=== PATIENT | female | born 1975 | race Caucasian/White ===

== ENCOUNTER 2024-12-17 11:10 | Outpatient (AMB) | payer OTHER, SELFPAY ==
--- NOTE | 2024-12-17 11:13 | MHC.PC.OV ---
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 Required: No Is last menstrual period known: Yes Last menstrual period: 12/10/24 Post menopausal: No Patient : No Allergies No Known Allergies Allergy (Verified 12/17/24 11:27) Medication List - Last Reconciled 12/17/24 by Vivien Ken CNP No Known Home Meds Tobacco use date assessed: 12/17/24 Dental Screening Dental Screen Date: 12/17/24 Did you have a dental visit in the last 12 months?: Yes Did you have a dental problem in the last 6 months where you did not have access to dental care?: No Was dental information given to patient?: Patient has dentist HPI HPI Comments History of Present Illness Details 49-year-old female presents to establish care. Prior PCP? - [facility] Last office visit/CPE/labs - 3-4 years Acute issue(s) - Reports pain to her lower lower back with prolonged sitting and standing. She describes the pain as sore, 7/10 on the pain pain scale; ongoing for the past 5 years, progressively worsened in the past one year. She does not take any medication for pain. 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 She also notes intermittent to her coccyx for over 10 years. She describes the pain as sharp 10/10 pain. The pain can occurs weekly or monthly, lasting 1-8 minutes; sitting/rocking on solid surface completely resolves the pain. Denies history of fall, injury, or trauma. She does not take medication for the pain. She has had negative colonoscopy and followed by chiropractor. No acute symptoms at this time. Past Medical History - Eczema, myopia and hyperopia (wears glasses), painless enlarged lymph node to right groin, chronic low back and coccyx pain Surgical History - None Family History - Mom: Hyperlipidemia - MGF: colon cancer Social History - History of smoking, 1pp x 22 years, quit 5 years ago, never had a lung scan. Vapes nicotine daily for the past 3 years. Drinks 2-4 magarita once weekly. Denies recreational drug use - Has been making healthy dietary choices. Walks regularly. Generally sleep well Health maintenance - Last eye exam was a year ago with [facility]. Encouraged to sign a release for her PCP to obtain Ophthalmology record - Last dental visit was in 09/2024 - Last Tdap unknown - Has not been vaccinated for the flu this season; declines vaccination - Last pap smear test was [address] James with [facility] mobile ui designer: Normal. Record not currently available - Last mammogram was 2 years ago: Never. She has an appointment with her bakery decorator in January and will have a mammogram then - Last colonoscopy was about 2 years with [facility]. Normal. 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 1. Little interest or pleasure in doing things: not at all 2. Feeling down, depressed, or hopeless: not at all 3. Trouble falling or staying asleep, or sleeping too much: not at all 4. Feeling tired or having little energy: not at all 5. Poor appetite or overeating: not at all 6. Feeling bad about yourself - or that you are a failure or have let yourself or your family down: not at all 7. Trouble concentrating on things, such as reading the newspaper or watching television: not at all 8. Moving or speaking so slowly that other people could have noticed. Or the opposite - being so fidgety or restless that you have been moving around a lot more than usual: not at all 9. Thoughts that you would be better off or of hurting yourself in some way: not at all Total score: 0 Depression Screening Interpretation: Negative Depression Screening Done: Yes 04114 - PHQ-9 Billing: Yes Source: Developed by Drs. Isaías Conte, Michelle Barrera, Andrew Schmidt and colleagues, with an educational deborah from [employer]. Thrive Questionnaire Date Thrive assessed: 12/17/24 I am a: Patient What is your living situation today?: I have a steady place to live Within the past 12 months, did the food you bought not last and you didn't have the money to get more?: Never true Within the past 12 months, did you worry whether your food would run out before you got money to buy more?: Never true Do you have trouble paying for medicines?: No Do you have trouble getting transportation to medical appointments?: No Do you have trouble paying your heating and electricity bill?: No Do you have trouble taking care of your child, family member or friend?: No Do you have trouble with day-to-day activities such as bathing, preparing meals, shopping, managing finances, etc.?: No Are you currently unemployed and looking for a job?: No Are you interested in more education?: No Please select the resources that you would like help with: None Currently or been in a relationship where the following occur: No concerns reported THRIVE Score: 0 AUDIT C Alcohol Use Questionnaire (AUDIT-C) 1. How often do you have a drink containing alcohol?: 2-4 times a month 2. How many drinks containing alcohol do you have on a typical day when you are drinking?: 1 or 2 3. How often do you have six or more drinks on one occasion?: Never Total Score: 2 Score Reviewed/Action Taken: Yes LILIA-7 AMB Questionnaire LILIA-7 Date LILIA - 7 assessed: 12/17/24 Feeling nervous, anxious, or on edge: 0 = Not at all Not being able to stop or control worryin = Not at all Worrying too much about different things: 0 = Not at all Trouble relaxin = Not at all Being so restless that it is hard to sit still: 1 = Several days Becoming easily annoyed or irritable: 0 = Not at all Feeling afraid as if something awful might happen: 0 = Not at all Total LILIA-7 score (0-4 normal; 5-9 mild; 10-14 moderate; 15-21 severe): 1 Source: Developed by Drs. Isaías Conte, Michelle Barrera, Andrew Schmidt and colleagues, with an educational deborah from [employer]. LILIA-7 Assessment Billing LILIA-7 Assessment Tool: LILIA-7 Assessment 75011 Review of Systems Const Details: Denies chills, Denies fatigue, Denies fever(s), Denies headache(s) and Denies weakness HEENT Denies change in vision, Denies dizziness, Denies headache(s), Denies hearing loss, Denies nasal congestion, Denies sinus pain, Denies sinus pressure and Denies sore throat Card Denies chest pain, Denies lightheadedness, Denies dyspnea and Denies other (palpitations) Resp Denies cough, Denies dyspnea and Denies wheezing GI Denies abdominal pain, Denies melena, Denies hematochezia, Denies change in bowel habits, Denies dyspepsia and Denies nausea Denies hematuria and Denies dysuria Musc Denies abnormal gait, Denies myalgias, Denies arthralgias, Denies numbness and Denies tingling Skin/Breast Denies rash, Denies unusual bruising and Denies wounds Neuro Denies abnormal gait, Denies dizziness, Denies headache(s), Denies memory loss, Denies numbness, Denies Sensory deficit (Neuro), Denies tingling and Denies weakness Psych Denies anxiety, Denies depression and Denies memory loss Endo Denies cold intolerance, Denies fatigue, Denies heat intolerance, Denies polydipsia and Denies polyuria Rancho/Lymph Denies easy bleeding and Denies easy bruising Aller/Immun Denies wheezing Physical exam (Primary Care) Vital Signs: Last Vital Signs Temp 98.0 F 12/17/24 11:19 Pulse 82 12/17/24 11:19 Resp 16 12/17/24 11:19 BP 126/68 12/17/24 11:19 Pulse Ox 99 12/17/24 11:19 Oxygen Delivery Method Room Air 12/17/24 11:19 BMI result Body Mass Index 29.3 Tobacco/Smoking Status: Tobacco use Status Tobacco use date assessed 12/17/24 12/17/24 11:19 Patient Tobacco Use Status Never used Tobacco 12/17/24 11:24 e-Cigarette/Vaping Use Currently Using 12/17/24 11:24 PHQ-9: PHQ-9 Score PHQ-9: Total score 0 12/17/24 11:15 Depression Screening Interpretation: Negative Thrive Assessment: Date of Thrive Assessment Date Thrive assessed 12/17/24 12/17/24 11:15 Currently or been in a relationship where the following occur: No concerns reported Const Other: General: no acute distress, well developed, alert and awake Nutritional Appearance: well nourished Orientation/consciousness: patient oriented x3 HENMT Head: Yes normocephalic and Yes atraumatic Ears: hearing grossly normal bilaterally and TM's normal bilaterally General nose exam: Normal external nose present and Normal nares present Mouth: Normal oral and palatal mucosa present and moist mucous membranes Teeth and gingiva: dentition normal Throat: Yes oropharynx normal Eyes Pupils: Equal, round and reactive pupils present and Pupil accommodation reflex normal EOM: EOMs intact bilaterally Neck Neck: Yes normal visual inspection, Yes no lymphadenopathy and Yes trachea midline Thyroid: Thyroid normal Carotids: no bruits Lymphatic: no lymphadenopathy noted Chest Chest palpation & inspection: normal inspection of the chest Resp Effort & Inspection: normal respiratory effort Auscultation: clear to auscultation bilaterally Cardio Rate: regular rate Rhythm: regular rhythm Heart sounds: S1 normal heart sound present, S2 normal heart sound present, no gallops, no murmurs and no rubs Bruits: no abdominal aortic bruits and no carotid bruits GI Palpation (GI): No Abdominal aortic bruit present, Soft to palpation, nontender, No hepatosplenomegaly present and No Rebound tenderness present Auscultation: normal bowel sounds General: Yes no CVA tenderness Back/Spine/Pelvis Back: no CVA tenderness Cervical Spine: cervical ROM normal and No Cervical spine tenderness Thoracic/Lumbar Spine: thoraco-lumbar ROM normal, No pain with thoraco-lumbar ROM, No thoracic spinal tenderness and No lumbar spinal tenderness Skin General: warm and dry. Normal skin color. Normal skin turgor Lesions: no lesions Rashes: no rashes Trauma: no lacerations or abrasions Wounds: no wounds Nails: normal Neuro General: patient oriented x3, gait normal and CN's II-XI intact bilaterally Cranial nerves: Yes Equal, round and reactive pupils present Cognition (Neuro): normal cognition Gait exam (Neuro): Normal gait present Motor exam (neuro): 5/5 motor strength present throughout Sensory Exam: No Sensory deficit (Neuro) Deep tendon reflexes (DTR's): Right patellar reflex intensity grade: 2+ and Left patellar reflex intensity grade: 2+ Extrem General: Yes normal to inspection, No edema and No calf tenderness Psych Appearance: grossly normal Affect: normal affect Attitude: cooperative Thought process: Normal thought process present Coding Level of Care Code New Pt Level 4 (89527) New Pt Prev Care 40-64y(41246) Diagnoses Normal physical examination, routine Z00.00 Chronic low back pain M54.50; G89.29 Chronic coccygeal pain M53.3; G89.29 History of smoking 10-25 pack years Z87.891 Engages in vaping Z72.89 Laboratory tests ordered as part of a complete physical exam (CPE) Z00.00 Additional Codes LILIA-7 Assessment Billing - LILIA-7 Assessment Tool: LILIA-7 Assessment 97321 ([id number]) PHQ-9 - 59692 - PHQ-9 Billing: Yes ([id number]) Assessment & Plan Assessment & Plan (1) Normal physical examination, routine: Code(s): Z00.00 - Encounter for general adult medical examination without abnormal findings Category: Medical Plan: No significant functional limitations noted. Continue current treatment regimen. Healthy diet and routine exercise encouraged. Perform lab work and follow-up for telehealth visit for labs review in 2-4 weeks. Return sooner with symptoms or concerns. Verbalized understanding and agreed with the plan. (2) Chronic low back pain: Code(s): M54.50 - Low back pain, unspecified; G89.29 - Other chronic pain Category: Medical Plan: Reports pain to her lower lower back with prolonged sitting and standing. She describes the pain as sore, 7/10 on the pain pain scale; ongoing for the past 5 years, progressively worsened in the past one year. She does not take any medication for pain. 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 She also notes intermittent to her coccyx for over 10 years. She describes the pain as sharp 10/10 pain. The pain can occurs weekly or monthly, lasting 1-8 minutes; sitting/rocking on solid surface completely resolves the pain. Denies history of fall, injury, or trauma. She does not take medication for the pain. She has had negative colonoscopy and followed by chiropractor. No acute symptoms at this time. No overt injury or trauma. Naproxen 500 mg twice daily as needed for pain or discomfort; advised to take as prescribed and with food. Instructed on the risks, benefits, and potential adverse reactions of the medication. Warm/cool compresses encouraged. X-ray of lumbar spine and coccyx ordered. Will review results and make changes as needed. Referred to physical therapy. Follow-up with worsening or new symptoms. Verbalized understanding and agreed with the plan. (3) Chronic coccygeal pain: Code(s): M53.3 - Sacrococcygeal disorders, not elsewhere classified; G89.29 - Other chronic pain Category: Medical Plan: Plan as above. (4) History of smoking 10-25 pack years: Code(s): Z87.891 - Personal history of nicotine dependence Category: Social Hx Plan: History of smoking 1ppd x 22 years, quit 5 years ago. Has been vaping nicotine for the past 3 years. Instructed on the health risks and complications of vaping/nicotine use and cessation encouraged. May order medication for nicotine dependence as needed. Referred to [facility] pulmonology for lung cancer screening. Follow-up as needed. Verbalized understanding and agreed with the plan. (5) Engages in vaping: Code(s): Z72.89 - Other problems related to lifestyle Category: Medical Plan: Plan as above. (6) Laboratory tests ordered as part of a complete physical exam (CPE): Code(s): Z00.00 - Encounter for general adult medical examination without abnormal findings Category: Medical Plan: Fasting labs ordered as part of a complete physical exam. Advised to fast for at least 10 hours before getting labs drawn. May drink water Verbalized understanding and agreed with treatment plan. Orders: Orders Complete Blood Count Auto Diff Today Z00.00 - Encounter for general adult medical examination without abnormal findings Lipid Panel Today Z00.00 - Encounter for general adult medical examination without abnormal findings Vitamin D 25-OH Total Today Z00.00 - Encounter for general adult medical examination without abnormal findings PT Evaluation and Treatment Today G89.29 - Other chronic pain, M53.3 - Sacrococcygeal disorders, not elsewhere classified, M54.50 - Low back pain, unspecified XR sacrum coccyx min 2V Today G89.29 - Other chronic pain, M53.3 - Sacrococcygeal disorders, not elsewhere classified Comprehensive [place]. Panel Fast Today Z00.00 - Encounter for general adult medical examination without abnormal findings Microalbumin, Random (w Creat) Today Z00.00 - Encounter for general adult medical examination without abnormal findings TSH reflex Free T4 Today Z00.00 - Encounter for general adult medical examination without abnormal findings UA CC w/rflx Micro + Cult Today Z00.00 - Encounter for general adult medical examination without abnormal findings XR lumbar spine 2-3V Today G89.29 - Other chronic pain, M54.50 - Low back pain, unspecified Referrals Lung Cancer Screening Referral Z87.891 - Personal history of nicotine dependence Medications: New naproxen Take with food 500 mg PO BID PRN 60 tabs 0RF pain
[2024-12-17 11:19] VITALS: BP 126/68; PULSE 82; RESP 16; TEMP 36.7; O2SAT 99; BMI 29.3
== END 2024-12-17 11:56 | disposition home or self-care (01) ==
LOC: HO.HMCFM 11:11
PROVIDERS: PCP Nurse Practitioner Family; Visit Provider Nurse Practitioner Family
DX: Z00.00 Encounter for general adult medical examination without abnormal findings (principal); M54.50 Low back pain, unspecified; G89.29 Other chronic pain; M53.3 Sacrococcygeal disorders, not elsewhere classified; Z87.891 Personal history of nicotine dependence; Z72.89 Other problems related to lifestyle

== ENCOUNTER → 2024-12-17 11:10 | Outpatient (BNVA) | payer OTHER, SELFPAY | PROVIDERS: PCP Nurse Practitioner Family; Visit Provider Nurse Practitioner Family | DX: Z00.00 Encounter for general adult medical examination without abnormal findings (principal); M54.50 Low back pain, unspecified; G89.29 Other chronic pain; M53.3 Sacrococcygeal disorders, not elsewhere classified; Z87.891 Personal history of nicotine dependence; Z72.89 Other problems related to lifestyle | CPT/HCPCS: 96127; 99202; 99386 ==

== ENCOUNTER 2024-12-25 08:19 | Outpatient (REF) | payer OTHER, SELFPAY ==
--- NOTE | ~2024-12-25 | XR_ITS ---
EXAMINATION: XR LUMBAR SPINE 2-3 VIEWS HISTORY: M54.50 - Low back pain, unspecified COMPARISON: There are no prior studies for comparison. FINDINGS: AP, lateral, and coned down views of the lumbar spine are submitted. Osseous mineralization is normal. Five nonrib-bearing lumbar vertebral bodies are identified, maintaining normal height and alignment without evidence of fracture or spondylolisthesis. Minimal degenerative changes are noted with anterior spurring. The intervertebral disc spaces are preserved. The posterior elements are intact. The visualized paraspinal soft tissues are unremarkable. XR/XR lumbar spine 2-3V IMPRESSION: Minimal degenerative changes. Electronically signed by: Isaías Henriquez MD 12/25/2024 09:08 AM EDT RP
--- NOTE | ~2024-12-25 | XR_ITS ---
EXAMINATION: XR SACRUM AND COCCYX CLINICAL INFORMATION: M53.3 - Sacrococcygeal disorders, not elsewhere classified COMPARISON: None available. TECHNIQUE: AP and lateral views FINDINGS: No acute cortical disruption. No lytic or blastic lesions. XR/XR sacrum coccyx min 2V IMPRESSION: No acute fracture. Electronically signed by: Hira Parkinson MD 12/25/2024 09:07 AM EDT
[2024-12-25 08:34] LABS: MANUAL DIFF FLAG NO
[2024-12-25 08:58] LABS: Hematocrit 38.9 % (37.0-47.0); Hemoglobin 13.1 g/dl (12.0-16.0); Imm Gran Abs Auto 0.06 X10*3/uL (0.00-0.03); Imm Gran Pct Auto 0.5 % (0.0-0.4); Lymphocytes Absolute Auto 1.7 X10*3/uL (1.2-4.9); Mean Corpuscular HGB Conc 33.7 g/dl (31.0-35.0); Mean Corpuscular Hemoglobin 29.8 pg (27.0-33.0); Mean Corpuscular Volume 88.4 fL (80.0-98.0); NRBC Abs Auto 0.000 X10*3/uL (0.0-0.012); NRBC Pct Auto 0.0 /100WBC (0.0-0.2); Platelet Count 299 X10*3/uL (160-400); Red Blood Count 4.40 X10*6/uL (4.20-5.50); White Blood Count 11.0 X10*3/uL (4.8-10.8)
[2024-12-25 09:08] LABS: Appearance Urine Cloudy; Glucose Urine UA Negative (Negative); PH 8.0 (5.0-9.0); Specific Gravity - Urine 1.020 (1.005-1.025)
[2024-12-25 09:29] LABS: Alanine Aminotransferase 24 U/L (0-31); Albumin Level 4.4 g/dL (3.5-5.0); Alkaline Phosphatase 88 U/L (39-117); Anion Gap 12 (12-20); Aspartate Amino Transferase 22 U/L (5-31); Blood Urea Nitrogen 11 mg/dL (9-16); Calcium 9.2 mg/dL (8.4-10.2); Carbon Dioxide 25 mmol/L (22-29); Chloride 109 mmol/L (96-108); Cholesterol 145 mg/dL (<200); Estimated Glomerular Filt Rate > 60; HDL Cholesterol 63 mg/dL (>40); Potassium 4.3 mmol/L (3.3-5.1); Sodium 142 mmol/L (135-145); Total Protein 7.6 g/dL (6.5-8.0); Triglycerides 53 mg/dL (<150)
[2024-12-25 09:59] LABS: Microalbum/Creatinine Ratio Ur 3.5 ug/mg cr (<30)
== END 2024-12-25 08:20 | disposition home or self-care (01) ==
LOC: HO.LAB 08:19
PROVIDERS: PCP Nurse Practitioner Family; Visit Provider Nurse Practitioner Family
DX: Z00.00 Encounter for general adult medical examination without abnormal findings (principal); M54.50 Low back pain, unspecified; M53.3 Sacrococcygeal disorders, not elsewhere classified; G89.29 Other chronic pain
CPT/HCPCS: 36415; 72100; 72220; 80053; 80061; 81003; 82043; 82306; 82570; 84443; 85025

== ENCOUNTER → 2024-12-25 08:39 | Outpatient (BNV) | payer OTHER, SELFPAY | PROVIDERS: PCP Nurse Practitioner Family; Visit Provider Radiology Diagnostic Radiology | DX: M54.50 Low back pain, unspecified (principal); M53.3 Sacrococcygeal disorders, not elsewhere classified | CPT/HCPCS: 72100; 72220 ==

== ENCOUNTER 2025-01-17 09:00 | Outpatient (AMB) | payer OTHER, SELFPAY ==
--- NOTE | 2025-01-17 08:57 | MHC.PC.OV ---
Intake Visit Reasons: Tele 2-4 wks labs review Intake Note: patient here for 2-4 wks Telehealth labs review Surveillance Investigator Required: No Is last menstrual period known: Yes Last menstrual period: 01/03/25 Post menopausal: No Patient : No Allergies No Known Allergies Allergy (Verified 01/17/25 08:58) Tobacco use date assessed: 01/17/25 Dental Screening Dental Screen Date: 01/17/25 Did you have a dental visit in the last 12 months?: Yes Did you have a dental problem in the last 6 months where you did not have access to dental care?: No Was dental information given to patient?: Patient has dentist HPI HPI Comments History of Present Illness Details 49-year-old female presents for a telehealth visit for review of recent labs and imaging results. She continues to experience intermittent pressure/discomfort to her lower back, sometimes radiates to both thighs with standing or from a sitting to standing position, resolves with walking. She denies tingling, numbness, loss of sensation. She has only taken Naproxen twice since prescribed; she notes that she does not like taking medication. She was referred to [facility] a month ago but has not been contacted by them. No acute symptoms at this time. 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 Isaías Conte, Michelle Barrera, Andrew Schmidt and colleagues, with an educational deborah from [employer]. Review of Systems Const Details: Denies chills, Denies fatigue, Denies fever(s), Denies headache(s) and Denies weakness Cardiac Denies chest pain, Denies claudication, Denies leg edema, Denies lightheadedness, Denies palpitations, Denies dyspnea, Denies dyspnea on exertion, Denies orthopnea and Denies other (Loss of consciousness) Resp Denies cough, Denies excessive phlegm production, Denies dyspnea, Denies dyspnea on exertion, Denies snoring and Denies wheezing Musc Reports as per HPI Physical exam (Primary Care) Tobacco/Smoking Status: Tobacco use Status Tobacco use date assessed 01/17/25 01/17/25 08:59 Patient Tobacco Use Status Never used Tobacco 01/17/25 08:59 e-Cigarette/Vaping Use Currently Using 01/17/25 08:59 Thrive Assessment: Date of Thrive Assessment Date Thrive assessed 12/14/24 01/17/25 09:01 Const Other: Patient is alert and oriented x4 Telehealth Telehealth Telehealth Platform: Telephone Location of provider rendering services: practice address Location of patient: address on file Patient Identification confirmed using: Name, : Yes Telehealth method: voice only Patient verbally consented to treatment: Yes Patient verbally consented to billing insurance company: Yes Patient informed of any privacy concerns related to visit: Yes Coding Level of Care Code Tele Est Pt Level 3 (84295) Diagnoses Leukocytosis D72.829 Elevated fasting glucose R73.01 Vitamin D deficiency E55.9 Chronic low back pain M54.50; G89.29 Time Spent (min) 15 Assessment & Plan Assessment & Plan (1) Leukocytosis: Code(s): D72.829 - Elevated white blood cell count, unspecified Category: Medical Plan: Recent WBC slightly elevated, 11.0. Equivocal. May be associated with inflammation. Will recheck WBC and make changes as needed. Verbalized understanding and agreed with the plan. (2) Elevated fasting glucose: Code(s): R73.01 - Impaired fasting glucose Category: Medical Plan: Recent fasting glucose is slightly elevated, 104. Will recheck fasting glucose and make changes as needed. Healthy diet, including low carbs encouraged. Verbalized understanding and agreed with the plan. (3) Vitamin D deficiency: Code(s): E55.9 - Vitamin D deficiency, unspecified Category: Medical Plan: Recent vitamin-D level is slightly low, 26.8. She has vitamin-D 3 1000 units at home and intends to start taking it. Encouraged to take vitamin D3 1000 units daily. Perform vitamin-D blood work a few days before next visit. Follow-up for transfer of care with a new provider within the practice in 2 months. Return sooner with symptoms or concerns. Verbalized understanding and agreed with plan. (4) Chronic low back pain: Code(s): M54.50 - Low back pain, unspecified; G89.29 - Other chronic pain Category: Medical Plan: She continues to experience intermittent pressure/discomfort to her lower back, sometimes radiates to both thighs with standing or from a sitting to standing position, resolves with walking. She denies tingling, numbness, loss of sensation. She has only taken Naproxen twice since prescribed; she notes that she does not like taking medication. She was referred to [facility] a month ago but has not been contacted by them. Recent x-ray of lumbar spine revealed mild degenerative changes. X-ray of sacrum and coccyx is negative. Continue current treatment. Follow-up as needed. Verbalized understanding and agreed with the plan. Encouraged to take naproxen as prescribed. She was referred to physical therapy a month ago but has not been contacted to establish care. Will follow-up with PT regarding referral. Will check folate, vitamin B12, and magnesium levels. Follow-up with worsening or new symptoms. Verbalized understanding and agreed with the plan. Orders: Orders Magnesium Today G89.29 - Other chronic pain, M54.50 - Low back pain, unspecified Complete Blood Count Auto Diff Today D72.829 - Elevated white blood cell count, unspecified Glucose Fasting Today R73.01 - Impaired fasting glucose Vitamin D 25-OH Total 2 Months E55.9 - Vitamin D deficiency, unspecified Vitamin B12 and Folate Today G89.29 - Other chronic pain, M54.50 - Low back pain, unspecified
== END 2025-01-17 09:49 | disposition home or self-care (01) ==
LOC: HO.HMCFM 09:01
PROVIDERS: PCP Nurse Practitioner Family; Visit Provider Nurse Practitioner Family
DX: D72.829 Elevated white blood cell count, unspecified (principal); R73.01 Impaired fasting glucose; E55.9 Vitamin D deficiency, unspecified; M54.50 Low back pain, unspecified; G89.29 Other chronic pain